=== PATIENT | male | born 2000 | race Caucasian/White ===

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

== ENCOUNTER 2023-05-18 16:40 | Emergency (ER) | payer BC, OTHER ==
[~2023-05-18] VITALS: Ht 182.9 cm; Wt 75.7 kg
[2023-05-18 20:14] VITALS: BP 139/71; TEMP 98.8; O2SAT 98
== END 2023-05-18 21:56 | disposition left against medical advice (07) ==
LOC: M ED 16:40
DX: Z53.21 Procedure and treatment not carried out due to patient leaving prior to being seen by health care provider (principal)